=== PATIENT | female | born 1960 | race African-American/Black ===

== ENCOUNTER 2018-03-20 19:31 | Emergency (ER) | payer MEDICARE, MEDICAID ==
[~2018-03-20] VITALS: Ht 162.6 cm; Wt 99.8 kg
[2018-03-20 19:33] VITALS: BP_SYST 150
[2018-03-20] MEDS ORDERED: ASPIRIN 81 MG TAB.CHEW PO ONE (20:30)
[2018-03-20] MEDS ORDERED: FUROSEMIDE 40 MG/4 ML VIAL IVP ONE (20:30)
[2018-03-20 21:09] LABS: BASOPHILS # (AUTO) 0.1 K/uL (0.0-0.2); BASOPHILS % (AUTO) 0.7 % (0.0-2.0); EOSINOPHILS # (AUTO) 0.1 K/uL (0.0-0.4); EOSINOPHILS % (AUTO) 1.4 % (0.0-4.0); HEMOGLOBIN 12.6 g/dL (12.0-16.0); LYMPHOCYTES # (AUTO) 2.9 K/uL (1.0-5.5); LYMPHOCYTES % (AUTO) 38.7 % (20.5-51.5); MEAN CORPUSCULAR HEMOGLOBIN 34 pg (27-31); MEAN CORPUSCULAR HGB CONC 34 % (32-36); MEAN CORPUSCULAR VOLUME 99 fL (79.0-98.0); MONOCYTES # (AUTO) 0.6 K/uL (0.0-1.0); MONOCYTES % (AUTO) 7.6 % (1.7-9.3); NEUTROPHILS # (AUTO) 3.7 K/uL (1.8-7.7); NEUTROPHILS % (AUTO) 51.6 % (40.0-70.0); PLATELET COUNT (AUTO) 320 K/uL (130-430); RED BLOOD CELL COUNT(AUTO) 3.74 MIL/uL (4.2-6.2); RED CELL DISTRIBUTION WIDTH 13.2 % (9.0-15.0); WHITE BLOOD COUNT (AUTO) 7.4 K/uL (4.8-10.8)
[2018-03-20] MEDS ORDERED: NITROGLYCERIN 0.4 MG TAB.SUBL SL ONE (21:15)
[2018-03-20 21:32] LABS: INR 1.1 (0.8-1.2); PROTHROMBIN TIME 11.6 SECS (9.5-12.5)
[2018-03-20 21:54] LABS: CALCIUM 7.9 mg/dL (8.4-11.0); CREATININE 0.72 mg/dL (0.55-1.30); POTASSIUM 3.5 mmol/L (3.5-5.1)
[2018-03-20 21:59] LABS: ALBUMIN 3.2 g/dL (3.4-4.8); TOTAL BILIRUBIN 0.4 mg/dL (0.0-1.0)
[2018-03-21 00:07] VITALS: BP_SYST 131
== END 2018-03-21 00:07 | disposition home or self-care (01) ==
LOC: SED 19:31
DX: R60.9 Edema, unspecified (principal); R07.89 Other chest pain; I10 Essential (primary) hypertension; F41.9 Anxiety disorder, unspecified; F17.200 Nicotine dependence, unspecified, uncomplicated
CPT/HCPCS: 36415; 71045; 80053; 81025; 83880; 84484; 85025; 85379; 85610; 85730; 93005; 93971; 96374; 99285; J1940

== ENCOUNTER 2018-06-27 09:35 | Inpatient (IN) | payer MEDICARE, MEDICAID ==
[~2018-06-27] VITALS: Ht 162.6 cm; Wt 100.2 kg
[2018-06-27 09:35] VITALS: BP_SYST 163
[2018-06-27] MEDS ORDERED: NACL 0.9% 1,000 ML IV ONE ×2 (10:00→12:15)
[2018-06-27] MEDS ORDERED: MORPHINE 4 MG/ML INJ. SYRINGE IVP ONE (10:00)
[2018-06-27 10:24] LABS: BASOPHILS # (AUTO) 0.1 K/uL (0.0-0.2); BASOPHILS % (AUTO) 1.5 % (0.0-2.0); EOSINOPHILS # (AUTO) 0.1 K/uL (0.0-0.4); EOSINOPHILS % (AUTO) 0.9 % (0.0-4.0); HEMATOCRIT 42.8 % (36-48); HEMOGLOBIN 14.2 g/dL (12.0-16.0); LYMPHOCYTES % (AUTO) 23.2 % (20.5-51.5); MEAN CORPUSCULAR HEMOGLOBIN 35 pg (27-31); MEAN CORPUSCULAR HGB CONC 33 % (32-36); MEAN CORPUSCULAR VOLUME 104 fL (79.0-98.0); MONOCYTES # (AUTO) 0.5 K/uL (0.0-1.0); MONOCYTES % (AUTO) 5.7 % (1.7-9.3); NEUTROPHILS # (AUTO) 6.1 K/uL (1.8-7.7); NEUTROPHILS % (AUTO) 68.7 % (40.0-70.0); PLATELET COUNT (AUTO) 225 K/uL (130-430); RED CELL DISTRIBUTION WIDTH 13.8 % (9.0-15.0); WHITE BLOOD COUNT (AUTO) 8.8 K/uL (4.8-10.8)
[2018-06-27 10:35] LABS: ANION GAP 12 (5-15); CALCIUM 9.4 mg/dL (8.4-11.0); CHLORIDE 103 mmol/L (98-107); CREATININE 0.83 mg/dL (0.55-1.30); GLUCOSE 179 mg/dL (70-99); POTASSIUM 3.8 mmol/L (3.5-5.1); SODIUM SERUM 136 mmol/L (136-145); UREA NITROGEN, BLOOD 7 mg/dL (8-21)
[2018-06-27 10:38] LABS: GFR AFRICAN AMERICAN 91 mL/min (>90)
[2018-06-27 10:41] LABS: ALANINE AMINOTRANSFERASE 85 U/L (12-78); ALBUMIN 3.3 g/dL (3.4-4.8); ASPARTATE AMINOTRANSFERASE 40 U/L (10-37); LIPASE 599 U/L (73-393); TOTAL BILIRUBIN 0.5 mg/dL (0.0-1.0)
[2018-06-27 10:42] LABS: ALCOHOL, BLOOD < 3 mg/dL (<10)
[2018-06-27] MEDS ORDERED: BENA20TA2 PO (10:53)
[2018-06-27] MEDS ORDERED: NITSL SL (10:53)
[2018-06-27] MEDS ORDERED: HYDR-3698 PO (10:53)
[2018-06-27] MEDS ORDERED: MELO15TA13 PO (10:53)
[2018-06-27] MEDS ORDERED: QUET300T2 PO (10:53)
[2018-06-27] MEDS: D5NS 1,000 ML IV SCH ×2 (11:15→20:50)
[2018-06-27 11:27] VITALS: BP_SYST 185
[2018-06-27] MEDS: HYDROmorphone 2 MG/ML VIAL IVP PRN ×4 (11:41→23:31)
[2018-06-27] MEDS ORDERED: ONDANSETRON HCL 4 MG/2 ML VIAL IVP PRN (11:45)
[2018-06-27] MEDS ORDERED: HYDROmorphone 1 MG INJ. 1 MG/ML AMPUL IVP PRN (11:45)
[2018-06-27] MEDS ORDERED: chlordiazePOXIDE HCL 25 MG CAPSULE PO ONE (12:00)
[2018-06-27] MEDS ORDERED: BANANA BAG 1 EA, FOLIC ACID 1 MG, THIAMINE HCL 100 MG, MAGNESIUM SULFATE 1 GM, MVI 10 M... IV SCH ×5 (12:00)
[2018-06-27] MEDS ORDERED: LORazepam 2 MG/ML VIAL IVP PRN (12:00)
[2018-06-27] MEDS: cloNIDine HCL 0.1 MG TABLET PO PRN ×2 (13:36→20:41)
[2018-06-27] MEDS: ENALAPRILAT DIHYDRATE 1.25 MG/ML VIAL IVP PRN (14:52)
[2018-06-27 16:00] VITALS: BP_SYST 149
[2018-06-27] MEDS: chlordiazePOXIDE HCL 25 MG CAPSULE PO SCH ×2 (18:00→21:42)
[2018-06-27 19:52] VITALS: BP_SYST 181
[2018-06-27] MEDS: QUEtiapine FUMARATE 100 MG TABLET PO SCH (20:41)
[2018-06-27 23:34] VITALS: BP_SYST 175
[2018-06-28] MEDS: D5NS 1,000 ML IV SCH ×2 (00:35→06:26)
[2018-06-28] MEDS: HYDROmorphone 2 MG/ML VIAL IVP PRN ×2 (03:08→07:49)
[2018-06-28 07:57] LABS: CALCIUM 8.8 mg/dL (8.4-11.0); CREATININE 0.63 mg/dL (0.55-1.30); POTASSIUM 3.5 mmol/L (3.5-5.1); TOTAL BILIRUBIN 0.3 mg/dL (0.0-1.0)
[2018-06-28 08:00] VITALS: BP_SYST 186
[2018-06-28] MEDS: chlordiazePOXIDE HCL 25 MG CAPSULE PO SCH (09:07)
[2018-06-28] MEDS: QUEtiapine FUMARATE 100 MG TABLET PO SCH (09:07)
[2018-06-28] MEDS ORDERED: DIATR MEGLU/DIATRIZ SOD 30 ML SOLUTION PO ONE (09:25)
[2018-06-28] MEDS ORDERED: IOHEXOL 350 mgI/mL, 150 ML INFUS..BTL IV ONE (11:17)
[2018-06-28] MEDS: ENALAPRILAT DIHYDRATE 1.25 MG/ML VIAL IVP PRN (11:49)
[2018-06-28 12:02] VITALS: BP_SYST 177
== END 2018-06-28 12:20 | disposition left against medical advice (07) | DRG 439 ==
LOC: SED 09:35 → SMU 10:55
PROVIDERS: ADMIT Internal Medicine Hospice and Palliative Medicine; ATTEND Internal Medicine Hospice and Palliative Medicine
DX: K85.20 Alcohol induced acute pancreatitis without necrosis or infection (principal); R65.10 Systemic inflammatory response syndrome (SIRS) of non-infectious origin without acute organ dysfunction; F20.9 Schizophrenia, unspecified; K86.1 Other chronic pancreatitis; I10 Essential (primary) hypertension; F10.20 Alcohol dependence, uncomplicated; G89.29 Other chronic pain; K83.8 Other specified diseases of biliary tract; F17.210 Nicotine dependence, cigarettes, uncomplicated; R74.0 Nonspecific elevation of levels of transaminase and lactic acid dehydrogenase [LDH]; Z53.21 Procedure and treatment not carried out due to patient leaving prior to being seen by health care provider; Z90.49 Acquired absence of other specified parts of digestive tract; Z79.899 Other long term (current) drug therapy
CPT/HCPCS: 36415; 76700-TC; 80053; 83605; 83690-TC; 85025; 87040-TC; 96361; 96374; 99285; G0482; J1170; J2270; J3411; J3475; J3490; J7030; Q9964; Q9967

== ENCOUNTER 2018-06-28 19:49 | Emergency (ER) | payer MEDICARE, MEDICAID ==
[~2018-06-28] VITALS: Ht 162.6 cm; Wt 103.9 kg
[~2018-06-28 19:49] MED LIST: BENA20TA2 PO; HYDR-3698 PO; MELO15TA13 PO; NITSL SL; QUET300T2 PO
[2018-06-28 19:57] VITALS: BP_SYST 159
[2018-06-28 20:21] LABS: BILIRUBIN,URINE NEGATIVE (NEGATIVE); CLARITY/URINE CLEAR (CLEAR); COLOR,URINE YELLOW (YELLOW); GLUCOSE,URINE NEGATIVE (NEGATIVE); KETONES,URINE TRACE (NEGATIVE); LEUKOCYTE ESTERASE ,URINE NEGATIVE (NEGATIVE); NITRITE, URINE NEGATIVE (NEGATIVE); PROTEIN URINE TRACE (NEGATIVE); UROBILINOGEN,URINE 0.2 (0.2-1.0)
[2018-06-28 20:23] LABS: BLOOD, URINE TRACE (NEGATIVE)
[2018-06-28 20:30] LABS: BACTERIA,URINE FEW /HPF (None Seen); RBC,URINE NONE SEEN /HPF (0-3); WBC,URINE 0-3 /HPF (0-3)
[2018-06-28] MEDS ORDERED: NACL 0.9% 1,000 ML IV ONE (20:30)
[2018-06-28] MEDS ORDERED: MORPHINE 4 MG/ML INJ. SYRINGE IVP ONE (20:30)
[2018-06-28 20:31] LABS: MUCUS,URINE None Seen /LPF (None Seen)
[2018-06-28 20:43] LABS: BASOPHILS % (AUTO) 0.4 % (0.0-2.0); EOSINOPHILS # (AUTO) 0.1 K/uL (0.0-0.4); EOSINOPHILS % (AUTO) 1.2 % (0.0-4.0); HEMOGLOBIN 13.1 g/dL (12.0-16.0); LYMPHOCYTES % (AUTO) 27.3 % (20.5-51.5); MEAN CORPUSCULAR HEMOGLOBIN 35 pg (27-31); MEAN CORPUSCULAR HGB CONC 33 % (32-36); MEAN CORPUSCULAR VOLUME 106 fL (79.0-98.0); MONOCYTES # (AUTO) 0.5 K/uL (0.0-1.0); NEUTROPHILS # (AUTO) 4.8 K/uL (1.8-7.7); NEUTROPHILS % (AUTO) 64.1 % (40.0-70.0); PLATELET COUNT (AUTO) 219 K/uL (130-430); RED BLOOD CELL COUNT(AUTO) 3.77 MIL/uL (4.2-6.2); RED CELL DISTRIBUTION WIDTH 13.9 % (9.0-15.0); WHITE BLOOD COUNT (AUTO) 7.4 K/uL (4.8-10.8)
[2018-06-28 20:50] LABS: CALCIUM 8.9 mg/dL (8.4-11.0); CREATININE 0.82 mg/dL (0.55-1.30); POTASSIUM 3.7 mmol/L (3.5-5.1)
[2018-06-28 20:53] LABS: ALBUMIN 3.1 g/dL (3.4-4.8); TOTAL BILIRUBIN 0.4 mg/dL (0.0-1.0)
[2018-06-28] MEDS ORDERED: KETOROLAC TROMETHAMINE 30 MG VIAL IVP ONE (21:30)
[2018-06-28 21:50] VITALS: BP_SYST 158
== END 2018-06-28 21:50 | disposition home or self-care (01) ==
LOC: SED 19:49
DX: R10.13 Epigastric pain (principal); F10.10 Alcohol abuse, uncomplicated; F41.9 Anxiety disorder, unspecified; I10 Essential (primary) hypertension; F17.210 Nicotine dependence, cigarettes, uncomplicated; Z71.6 Tobacco abuse counseling; Z79.899 Other long term (current) drug therapy
CPT/HCPCS: 36415; 80053; 81000; 83690; 85025; 96361; 96374; 96375; 99283; J1885; J2270; J7030

== ENCOUNTER 2018-08-13 14:55 | Emergency (ER) | payer MEDICARE, MEDICAID ==
[~2018-08-13] VITALS: Ht 162.6 cm; Wt 97.5 kg
[2018-08-13 15:00] VITALS: BP_SYST 163
[2018-08-13 15:42] LABS: BASOPHILS # (AUTO) 0.1 K/uL (0.0-0.2); BILIRUBIN,URINE NEGATIVE (NEGATIVE); BLOOD, URINE NEGATIVE (NEGATIVE); CLARITY/URINE SL CLOUDY (CLEAR); COLOR,URINE YELLOW (YELLOW); EOSINOPHILS # (AUTO) 0.1 K/uL (0.0-0.4); EOSINOPHILS % (AUTO) 0.7 % (0.0-4.0); GLUCOSE,URINE NEGATIVE (NEGATIVE); HEMOGLOBIN 13.9 g/dL (12.0-16.0); KETONES,URINE TRACE (NEGATIVE); LEUKOCYTE ESTERASE ,URINE 1+ (NEGATIVE); MEAN CORPUSCULAR HEMOGLOBIN 35 pg (27-31); MEAN CORPUSCULAR HGB CONC 34 % (32-36); NITRITE, URINE POSITIVE (NEGATIVE); PROTEIN URINE 2+ (NEGATIVE); UROBILINOGEN,URINE 0.2 (0.2-1.0)
[2018-08-13] MEDS ORDERED: DIPHENHYDRAMINE INJ 50 MG/ML VIAL IVP ONE (15:45)
[2018-08-13] MEDS ORDERED: MORPHINE 4 MG/ML INJ. SYRINGE IVP ONE ×2 (15:45→16:15)
[2018-08-13 15:46] LABS: BASOPHILS % (AUTO) 1.1 % (0.0-2.0); HEMATOCRIT 40.7 % (36-48); LYMPHOCYTES # (AUTO) 2.2 K/uL (1.0-5.5); LYMPHOCYTES % (AUTO) 20.8 % (20.5-51.5); MEAN CORPUSCULAR VOLUME 102 fL (79.0-98.0); MONOCYTES # (AUTO) 0.7 K/uL (0.0-1.0); MONOCYTES % (AUTO) 6.3 % (1.7-9.3); NEUTROPHILS # (AUTO) 7.6 K/uL (1.8-7.7); NEUTROPHILS % (AUTO) 71.1 % (40.0-70.0); PLATELET COUNT (AUTO) 228 K/uL (130-430); RED BLOOD CELL COUNT(AUTO) 3.99 MIL/uL (4.2-6.2); RED CELL DISTRIBUTION WIDTH 13.8 % (9.0-15.0); WHITE BLOOD COUNT (AUTO) 10.7 K/uL (4.8-10.8)
[2018-08-13 15:47] LABS: BACTERIA,URINE MODERATE /HPF (None Seen); FINE GRANULAR CASTS,URINE 0-10 /LPF (None Seen); RBC,URINE 0-3 /HPF (0-3)
[2018-08-13 15:56] LABS: CALCIUM 8.6 mg/dL (8.4-11.0); CREATININE 1.08 mg/dL (0.55-1.30)
[2018-08-13 15:57] LABS: INR 1.1 (0.8-1.2); PROTHROMBIN TIME 10.9 SECS (9.5-12.5)
[2018-08-13 15:58] LABS: ALBUMIN 3.3 g/dL (3.4-4.8); TOTAL BILIRUBIN 0.4 mg/dL (0.0-1.0)
[2018-08-13] MEDS ORDERED: cefTRIAXone 1 GM IVPB PREMIX 50 ML IV ONE (16:15)
[2018-08-13] MEDS ORDERED: POTASSIUM CHLORIDE 20 MEQ/PKT PACKET PO ONE (16:15)
[2018-08-13 17:15] VITALS: BP_SYST 145
== END 2018-08-13 17:15 | disposition home or self-care (01) ==
LOC: SED 14:55
DX: K85.90 Acute pancreatitis without necrosis or infection, unspecified (principal); N39.0 Urinary tract infection, site not specified; E87.6 Hypokalemia; F41.9 Anxiety disorder, unspecified; I10 Essential (primary) hypertension; F17.210 Nicotine dependence, cigarettes, uncomplicated; Z79.899 Other long term (current) drug therapy
CPT/HCPCS: 36415; 71045; 74176; 80053; 81000; 83605; 83690; 85025; 85610; 87040; 87086; 87186; 93005; 96365; 96375; 99284; J0696; J1200; J2270; 99283

== ENCOUNTER 2018-08-14 00:14 | Inpatient (IN) | payer MEDICARE, MEDICAID ==
[~2018-08-14] VITALS: Ht 162.6 cm; Wt 97.1 kg
[2018-08-14] MEDS ORDERED: NACL 0.9% 1,000 ML IV ONE ×2 (00:20→02:45)
[2018-08-14] MEDS ORDERED: MORPHINE 4 MG/ML INJ. SYRINGE IVP ONE (00:30)
[2018-08-14] MEDS ORDERED: DIPHENHYDRAMINE INJ 50 MG/ML VIAL IVP ONE (00:30)
[2018-08-14] MEDS ORDERED: ONDANSETRON HCL 4 MG/2 ML VIAL IVP ONE (00:30)
[2018-08-14 00:35] VITALS: BP_SYST 163
--- NOTE | 2018-08-14 00:41 | NUR ---
Patient to ER bed 5 to gown for evaluation. Side rails up. Report given to JOSE Reynoso.
--- NOTE | 2018-08-14 00:50 | NUR ---
Note undone in EDM - 08/14/18 at 0212 by DAVEY PT BECAME BACK TO ED (SEEN EARLIER TONIGHT) C/O non-radiating epigastric abdominal pain that started last night. The patient was last seen in the ED earlier this evening for similar complaints. The patient was discharged home with UTI, acute pancreatitis, and hypokalemia, and was prescribed Kellogg and Bactrim. HOWEVER, SYMPTOMS WORSENED. NO OTHER INJURIES AND/OR COMPLIANTS. NOR NOTED
--- NOTE | 2018-08-14 00:50 | NUR ---
PT BECAME BACK TO ED C/O CONTINUE EPIGASTRIC ABD PAIN STARTED LAST NIGHT. PT WAS SEEN IN ED EALIER THIS EVENING FOR SIMILAR COMPLAINTS. PT WAS DC'D HOME FOR ACUTE PANCREATITIS, AND UTI. HOWEVER, SYMPTOMS WORSENED, THEREFORE THE RETURN VISIT NO OTHER INJURIES AND/OR COMPLIANTS. NOR NOTED
--- NOTE | 2018-08-14 00:52 | NUR ---
ER Dr. Huang at bedside examining patient.
[2018-08-14] MEDS ORDERED: MORPHINE 4 MG/ML INJ. SYRINGE ONE (01:19)
--- NOTE | 2018-08-14 01:20 | NUR ---
# 22 gauge angiocath placed to LFA. Use of asceptic technique. Opsite placed over site. Blood return noted. Blood for lab drawn from site. Flushed with 10 cc of normal saline. No evidence of infiltration noted. Patient tolerated well.
[2018-08-14 01:22] LABS: BILIRUBIN,URINE NEGATIVE (NEGATIVE); CLARITY/URINE CLEAR (CLEAR); COLOR,URINE YELLOW (YELLOW); GLUCOSE,URINE NEGATIVE (NEGATIVE); KETONES,URINE NEGATIVE (NEGATIVE); LEUKOCYTE ESTERASE ,URINE TRACE (NEGATIVE); NITRITE, URINE NEGATIVE (NEGATIVE); PROTEIN URINE 1+ (NEGATIVE); UROBILINOGEN,URINE 0.2 (0.2-1.0)
[2018-08-14 01:24] LABS: BLOOD, URINE TRACE (NEGATIVE)
--- NOTE | 2018-08-14 01:31 | NUR ---
End of life care decisions discussed with patient by Dr. Huang. Opportunity for questions and concerns addressed. Patient's code status is FULL CODE, paperwork completed and placed in chart.
--- NOTE | 2018-08-14 01:33 | NUR ---
Medication reconciliation completed with information provided by patient. Any prior medication reconciliation on file was reviewed and corrected.
[2018-08-14 01:34] LABS: BACTERIA,URINE FEW /HPF (None Seen); HYALINE CASTS, URINE 0-10 /LPF (None Seen)
[2018-08-14 01:35] LABS: MUCUS,URINE 1+ /LPF (None Seen)
[2018-08-14] MEDS ORDERED: cefTRIAXone 1 GM IVPB PREMIX 50 ML IV ONE (01:45)
[2018-08-14 01:48] LABS: BASOPHILS % (AUTO) 0.4 % (0.0-2.0); EOSINOPHILS % (AUTO) 0.4 % (0.0-4.0); HEMATOCRIT 39.7 % (36-48); HEMOGLOBIN 13.7 g/dL (12.0-16.0); LYMPHOCYTES # (AUTO) 1.9 K/uL (1.0-5.5); LYMPHOCYTES % (AUTO) 16.3 % (20.5-51.5); MEAN CORPUSCULAR HEMOGLOBIN 35 pg (27-31); MEAN CORPUSCULAR HGB CONC 34 % (32-36); MEAN CORPUSCULAR VOLUME 100 fL (79.0-98.0); MONOCYTES # (AUTO) 0.6 K/uL (0.0-1.0); MONOCYTES % (AUTO) 5.2 % (1.7-9.3); NEUTROPHILS # (AUTO) 9.2 K/uL (1.8-7.7); NEUTROPHILS % (AUTO) 77.7 % (40.0-70.0); PLATELET COUNT (AUTO) 193 K/uL (130-430); RED BLOOD CELL COUNT(AUTO) 3.96 MIL/uL (4.2-6.2); RED CELL DISTRIBUTION WIDTH 13.9 % (9.0-15.0); WHITE BLOOD COUNT (AUTO) 11.7 K/uL (4.8-10.8)
[2018-08-14] MEDS ORDERED: fentaNYL CITRATE/PF 100 MCG/2 ML AMP IVP ONE (02:00)
[2018-08-14 02:04] LABS: CALCIUM 8.7 mg/dL (8.4-11.0); CREATININE 0.7 mg/dL (0.55-1.30)
[2018-08-14 02:06] LABS: INR 1.1 (0.8-1.2); PROTHROMBIN TIME 11.6 SECS (9.5-12.5)
[2018-08-14 02:13] LABS: ALBUMIN 3.4 g/dL (3.4-4.8); TOTAL BILIRUBIN 0.5 mg/dL (0.0-1.0)
[2018-08-14 02:15] LABS: POTASSIUM 3.5 mmol/L (3.5-5.1)
[2018-08-14] MEDS ORDERED: ONDANSETRON HCL 4 MG/2 ML VIAL IVP PRN (02:45)
[2018-08-14] MEDS ORDERED: MORPHINE 4 MG/ML INJ. SYRINGE IVP PRN (02:45)
[2018-08-14] MEDS ORDERED: cloNIDine HCL 0.1 MG TABLET PO ONE (02:45)
--- NOTE | 2018-08-14 02:48 | NUR ---
Medication was given, pt tolerate well. BP 176/83. Dr. Huang aware.
--- NOTE | 2018-08-14 02:58 | NUR ---
Re-checked BP 169/57. Dr. Huang aware.
--- NOTE | 2018-08-14 03:05 | NUR ---
BP currently at 174/87. Dr. Huang aware.
[2018-08-14] MEDS ORDERED: cloNIDine HCL 0.2 MG TABLET PO ONE (03:30)
--- NOTE | 2018-08-14 03:35 | NUR ---
Medication was given, pt tolerated well.
--- NOTE | 2018-08-14 03:36 | NUR ---
Current BP 159/81. Dr. Huang aware.
[2018-08-14] MEDS ORDERED: cloNIDine HCL 0.1 MG TABLET ONE (03:41)
--- NOTE | 2018-08-14 03:42 | NUR ---
Patient will be admitted to care of Dr. Reyna. Admitted to Med Surg unit. Will go to room 122 B. Belongings list completed. Summary report printed. Report given.
--- NOTE | 2018-08-14 03:42 | NUR ---
Transfer to Med Surg. IV present no signs or symptoms of infiltration.
--- NOTE | 2018-08-14 03:49 | NUR ---
ADMISSION NOTE Received patient from ER via gurney. Patient admitted with diagnosis of Acute Pancreatitis. Patient is awake, alert, oriented X 4. Patient oriented to hospital room, call light, toileting, pain management and safety-teach back done. Patient informed that JOSE Mosley will be primary nurse and that their room number is 122B. Personal belongings checked and Belongings List documented. Call light within reach.
[2018-08-14 04:00] VITALS: BP_SYST 194
--- NOTE | 2018-08-14 04:00 | NUR ---
OPENING NOTE RECEIVED ENDORSEMENT REPORT FROM NURSE LONGO AT BEDSIDE. PT IS RESTING COMFORTABLY IN BED. PT IS AOX4. CHEST RISE EVEN AND UNLABORED. NO SOB NOTED. NO DISTRESS NOTED. SKIN DRY CLEAN AND INTACT. ORIENTED PT TO HOSPITAL ROOM, PT VERBALIZED UNDERSTANDING. INSTRUCTED PT TO USE CALL LIGHT/ ROOM PHONE TO CALL FOR ASSISTANCE. PT VERBALIZED UNDERSTANDING SAFETY MEASURES IN PLACE, CALL LIGHT/ROOM PHONE WITHIN REACH, BED ALARM ON, BED WHEELS LOCKED, SIDE RAILS UP X2, BEDSIDE TABLE WITHIN REACH. NO OTHER NEEDS AT THIS TIME. WILL CONTINUE TO MONITOR PT AND CONTINUE POC.
--- NOTE | 2018-08-14 04:06 | NUR ---
PT ARRIVED VIA BETTYE @4630
--- NOTE | 2018-08-14 04:16 | NUR ---
MED PASS PRN MORPHINE 4 MG IVP ADMINISTERED FOR ABD PAIN 8/10 PAIN, PT TOLERATED WELL. WILL CONTINUE TO MONITOR PT. NO OTHER NEEDS AT THIS TIME. SAFETY MEASURES IN PLACE. WILL CONTINUE WITH POC.
--- NOTE | 2018-08-14 05:10 | NUR ---
SAFETY PT IS NONCOMPLIANT, PT CONTINUOUSLY ATTEMPTING TO GET OUT OF BED. EDUCATED PT ON PT SAFETY, PT VERBALIZED UNDERSTANDING BUT CONTINUES TO GET OUT OF BED. PT ASSISTED BACK INTO BED. SAFETY MEASURES IN PLACE INCLUDING BED ALARM. WILL CONTINUE TO MONITOR PT.
--- NOTE | 2018-08-14 06:15 | NUR ---
PT LEFT AMA EDUCATED PT ON LEAVING AGAINST MEDICAL ADVICE, PT VERBALIZED UNDERSTANDING. PT VOLUNTARILY SIGNED AND LEFT THE HOSPITAL WITHOUT BEING SEEN BY THE PHYSICIAN. PT AMBULATED WITH STEADY GAIT OUT TO THROUGH THE ED DOUBLE DOORS.
--- NOTE | 2018-08-14 06:50 | NUR ---
PT RETURNED. PT'S CARE CONTINUED
--- NOTE | 2018-08-14 06:50 | NUR ---
PER [employer] PT'S CARE TO BE CONTINUED, PT SIGNED AND LEFT AMA AND WAS GONE FROM 0615 TO 0650 WHEN SHE RETURNED BACK FROM ED. ACCORDING TO [employer] CALEB PT TO BE RETURNED INTO SYSTEM AFTER DISCHARGE AND AMA.
--- NOTE | 2018-08-14 07:57 | NUR ---
CLOSING NOTE PT REPORT ENDORSED TO DAY SHIFT NURSE ROXANNE. PT IS RESTING COMFORTABLY IN BED. PT IS AOX4. CHEST RISE EVEN AND UNLABORED. NO SOB NOTED. NO DISTRESS NOTED. SAFETY MEASURES IN PLACE. CARE ENDORSED.
--- NOTE | 2018-08-14 08:13 | NUR ---
AMA: Patient does not wish to proceed with medical care recommended by DR. BIGGS. Patient given information related to possible complications, up to and including , which could occur as a result of leaving hospital at this time. Patient verbalizes understanding of risks involved leaving against medical advice. Patient refused to sign AMA form.
--- NOTE | 2018-08-14 08:13 | NUR ---
NOTES RECEIVED PATIENT SITTING IN BED, EDUCATED PATIENT TO STAY IN BED AND WAIT FOR THE DOCTOR TO COME SEE PATIENT, PATIENT VERBALIZED UNDERSTANDING, PATIENT RETURNED TO BED WITH GOWN AND BED ALARM ON, RETURNED TO TAKE PATIENTS VITAL SIGNS AND RECEIVED CALL THAT PATIENT WAS IN ER DRESSED AND WALKING OUT THE DOOR, PATIENT REFUSED TO SIGN AMA AND JUST WANTED TO LEAVE.
--- NOTE | 2018-08-14 08:35 | NUR ---
SPOKE TO DAUGHTER PORFIRIO ESTEVES ON THE PHONE AND MADE HER AWARE THAT HER MOTHER HAS LEFT AMA.
--- NOTE | 2018-08-16 12:31 | NUR ---
RECEIVED +URINE CULTURE FROM LABORATORY, DISCUSSED CASE WITH DR LOUIS AND PT RECEIVED ANTIBIOTICS THAT THEY ARE SENSITIVE TO, NO FURTHER ACTIONS NEEDED.
== END 2018-08-14 08:10 | disposition left against medical advice (07) | DRG 440 ==
LOC: SED 00:14 → SMU 02:32 → UNDODISIN 06:15
PROVIDERS: ADMIT Internal Medicine Hospice and Palliative Medicine; ATTEND Internal Medicine Hospice and Palliative Medicine
DX: K85.90 Acute pancreatitis without necrosis or infection, unspecified (principal); Z53.21 Procedure and treatment not carried out due to patient leaving prior to being seen by health care provider; I10 Essential (primary) hypertension; F41.9 Anxiety disorder, unspecified; F17.210 Nicotine dependence, cigarettes, uncomplicated; Z79.899 Other long term (current) drug therapy
CPT/HCPCS: 36415; 80053; 81000-TC; 82150-TC; 82550-TC; 83605; 83690-TC; 84484; 85025; 85610-TC; 85730-TC; 87040-TC; 87086; 93005; 96365; 96375; 99285; G0482; J0696; J1200; J2270; J2405; J3010; J7030

== ENCOUNTER 2018-12-07 14:26 | Emergency (ER) | payer OTHER, MEDICAID ==
[~2018-12-07] VITALS: Ht 162.6 cm; Wt 104.3 kg
[~2018-12-07 14:26] MED LIST changes: -BENA20TA2 PO; +BENA20TA9 PO; -NITSL SL
--- NOTE | 2018-12-07 14:26 | NUR ---
BROUGHT BACK TO BED #6 AND TRIAGED. REPORT GIVEN TO ARMANDO
[2018-12-07 14:27] VITALS: BP_SYST 165
--- NOTE | 2018-12-07 14:45 | NUR ---
Pt presents to ED c/o lower abd pain radiating to bilateral flank.Pt reports h/o HTN. Pt denies n/v/d at this time.
[2018-12-07] MEDS ORDERED: MORPHINE SULFATE 10 MG/ML VIAL IM ONE (15:00)
--- NOTE | 2018-12-07 15:00 | NUR ---
ER at bedside examining patient.
--- NOTE | 2018-12-07 15:16 | NUR ---
Pt tolerated medication well.Continuing to monitor.
--- NOTE | 2018-12-07 15:20 | NUR ---
Urine specimen collected and sent to lab
[2018-12-07 15:21] LABS: BASOPHILS % (AUTO) 0.3 % (0.0-2.0); EOSINOPHILS % (AUTO) 0.3 % (0.0-4.0); HEMATOCRIT 42.4 % (36-48); HEMOGLOBIN 14.8 g/dL (12.0-16.0); LYMPHOCYTES # (AUTO) 1.8 K/uL (1.0-5.5); MEAN CORPUSCULAR HEMOGLOBIN 36 pg (27-31); MEAN CORPUSCULAR HGB CONC 35 % (32-36); MEAN CORPUSCULAR VOLUME 103 fL (79.0-98.0); MONOCYTES # (AUTO) 0.7 K/uL (0.0-1.0); MONOCYTES % (AUTO) 6.5 % (1.7-9.3); NEUTROPHILS # (AUTO) 8.1 K/uL (1.8-7.7); NEUTROPHILS % (AUTO) 75.9 % (40.0-70.0); PLATELET COUNT (AUTO) 173 K/uL (130-430); RED BLOOD CELL COUNT(AUTO) 4.13 MIL/uL (4.2-6.2); WHITE BLOOD COUNT (AUTO) 10.7 K/uL (4.8-10.8)
[2018-12-07 15:35] LABS: CALCIUM 8.3 mg/dL (8.4-11.0); CREATININE 1.02 mg/dL (0.55-1.30)
[2018-12-07 15:37] LABS: BILIRUBIN,URINE NEGATIVE (NEGATIVE); CLARITY/URINE HAZY (CLEAR); COLOR,URINE YELLOW (YELLOW); GLUCOSE,URINE NEGATIVE (NEGATIVE); KETONES,URINE TRACE (NEGATIVE); LEUKOCYTE ESTERASE ,URINE 1+ (NEGATIVE); NITRITE, URINE NEGATIVE (NEGATIVE); PROTEIN URINE 1+ (NEGATIVE); UROBILINOGEN,URINE 0.2 (0.2-1.0)
[2018-12-07 15:41] LABS: ALBUMIN 3.6 g/dL (3.4-4.8); TOTAL BILIRUBIN 1.1 mg/dL (0.0-1.0)
[2018-12-07 15:45] LABS: BLOOD, URINE TRACE (NEGATIVE)
[2018-12-07 15:52] LABS: BACTERIA,URINE MANY /HPF (None Seen); MUCUS,URINE None Seen /LPF (None Seen); RBC,URINE 0-3 /HPF (0-3)
[2018-12-07] MEDS ORDERED: MORPHINE 2 MG/ML INJ. SYRINGE IVP ONE (16:00)
--- NOTE | 2018-12-07 16:31 | NUR ---
Pt tolerated medication well.
--- NOTE | 2018-12-07 17:10 | NUR ---
Patient transported to radiology via WC, accompanied by rad staff.
--- NOTE | 2018-12-07 17:30 | NUR ---
Returned from radiology, back to [facility].
--- NOTE | 2018-12-07 17:53 | NUR ---
Pt sleeping VSS. Continuing to monitor. 170/86, 97%,86 HR
[2018-12-07 18:20] VITALS: BP_SYST 160
== END 2018-12-07 17:53 | disposition home or self-care (01) ==
LOC: SED 14:26
DX: N13.30 Unspecified hydronephrosis (principal); N39.0 Urinary tract infection, site not specified; F41.9 Anxiety disorder, unspecified; I10 Essential (primary) hypertension; F17.200 Nicotine dependence, unspecified, uncomplicated; Z79.899 Other long term (current) drug therapy
CPT/HCPCS: 36415; 76700; 80053; 81000; 83690; 85025; 87086; 87186; 93005; 96372; 96374; 99284; J2270 ×2

== ENCOUNTER 2018-12-11 01:05 | Inpatient (IN) | payer OTHER, MEDICAID ==
[2018-12-11] VITALS (7 sets, daily range): BP systolic 118–161
[~2018-12-11] VITALS: Ht 162.6 cm; Wt 104.3 kg
[2018-12-11] MEDS ORDERED: NACL 0.9% 1,000 ML IV ONE (02:04)
[2018-12-11 02:25] LABS: BASOPHILS % (AUTO) 0.4 % (0.0-2.0); EOSINOPHILS % (AUTO) 0.4 % (0.0-4.0); HEMATOCRIT 40.7 % (36-48); HEMOGLOBIN 14.3 g/dL (12.0-16.0); LYMPHOCYTES # (AUTO) 2.2 K/uL (1.0-5.5); LYMPHOCYTES % (AUTO) 21.2 % (20.5-51.5); MEAN CORPUSCULAR HEMOGLOBIN 36 pg (27-31); MEAN CORPUSCULAR HGB CONC 35 % (32-36); MEAN CORPUSCULAR VOLUME 103 fL (79.0-98.0); MONOCYTES % (AUTO) 9.7 % (1.7-9.3); NEUTROPHILS % (AUTO) 68.3 % (40.0-70.0); PLATELET COUNT (AUTO) 222 K/uL (130-430); RED BLOOD CELL COUNT(AUTO) 3.94 MIL/uL (4.2-6.2); RED CELL DISTRIBUTION WIDTH 14.2 % (9.0-15.0); WHITE BLOOD COUNT (AUTO) 10.3 K/uL (4.8-10.8)
[2018-12-11 02:40] LABS: CALCIUM 8.6 mg/dL (8.4-11.0); CREATININE 1.04 mg/dL (0.55-1.30)
[2018-12-11 02:41] LABS: INR 1.1 (0.8-1.2); PROTHROMBIN TIME 11.5 SECS (9.5-12.5)
[2018-12-11 02:46] LABS: ALBUMIN 3.5 g/dL (3.4-4.8); TOTAL BILIRUBIN 0.7 mg/dL (0.0-1.0)
[2018-12-11 02:53] LABS: POTASSIUM 2.9 mmol/L (3.5-5.1)
[2018-12-11 03:00] LABS: BILIRUBIN,URINE 1+ (NEGATIVE); CLARITY/URINE CLEAR (CLEAR); COLOR,URINE YELLOW (YELLOW); GLUCOSE,URINE NEGATIVE (NEGATIVE); KETONES,URINE TRACE (NEGATIVE); LEUKOCYTE ESTERASE ,URINE NEGATIVE (NEGATIVE); NITRITE, URINE NEGATIVE (NEGATIVE); PROTEIN URINE TRACE (NEGATIVE)
[2018-12-11 03:03] LABS: BLOOD, URINE TRACE (NEGATIVE)
[2018-12-11 03:06] LABS: BACTERIA,URINE FEW /HPF (None Seen); WBC,URINE 0-3 /HPF (0-3)
[2018-12-11] MEDS ORDERED: POTASSIUM CHLORIDE 20 MEQ TAB.PRT.SR PO ONE (03:45)
[2018-12-11] MEDS ORDERED: MORPHINE 4 MG/ML INJ. SYRINGE IVP ONE (03:45)
[2018-12-11] MEDS ORDERED: HYDR50TA61 PO (06:18)
[2018-12-11] MEDS ORDERED: KCL 20 mEq in 100 mL (PREMIX) 100 ML IV ONE (06:45)
[2018-12-11] MEDS: KCL 20 mEq in NS 1000 mL 1,000 ML IV SCH ×2 (08:02→18:22)
[2018-12-11] MEDS: QUEtiapine FUMARATE 100 MG TABLET PO SCH ×2 (08:03→20:07)
[2018-12-11] MEDS: BENAZEPRIL HCL 20 MG TABLET (LOTENSIN) PO SCH (08:04)
[2018-12-11] MEDS ORDERED: chlordiazePOXIDE HCL 25 MG CAPSULE PO ONE (09:15)
[2018-12-11] MEDS ORDERED: ONDANSETRON HCL 4 MG/2 ML VIAL IVP ONE (09:15)
[2018-12-11] MEDS ORDERED: MORPHINE 2 MG/ML INJ. SYRINGE IVP ONE (09:15)
[2018-12-11 11:01] LABS: OPIATE, URINE POSITIVE (NEG <=100)
[2018-12-11 11:02] LABS: BARBITURATE, URINE NEGATIVE (NEG <=200); BENZODIAZEPINE, URINE NEGATIVE (NEG <=150); CANNABINOID, URINE NEGATIVE (NEG <=50); COCAINE, URINE NEGATIVE (NEG <=150); METHAMPHETAMINES SCREEN,URINE NEGATIVE (NEG <=500); PHENCYCLIDINE SCREEN,URINE NEGATIVE (NEG <=25); UR TRICYCLIC ANTIDEPRESSANTS NEGATIVE (NEG <=300); URINE AMPHETAMINE NEGATIVE (NEG <=500); URINE METHADONE NEGATIVE (NEG <=200); URINE OXYCODONE SCREEN NEGATIVE (NEG <=100); URINE PROPOXYPHENE SCREEN NEGATIVE (NEG <=300)
[2018-12-11 11:40] LABS: ALCOHOL, BLOOD < 3 mg/dL (<10)
[2018-12-11] MEDS ORDERED: ONDANSETRON HCL 4 MG/2 ML VIAL IVP PRN (11:45)
[2018-12-11] MEDS: MORPHINE 2 MG/ML INJ. SYRINGE IVP PRN ×2 (12:06→20:08)
[2018-12-11] MEDS ORDERED: PANTOPRAZOLE SODIUM 40 MG/VIAL (PROTONIX) IVP ONE (12:15)
[2018-12-11] MEDS ORDERED: MULTIVITAMINS TAB 1 TABLET PO ONE (17:00)
[2018-12-11] MEDS ORDERED: FOLIC ACID 1 MG TABLET PO ONE (17:00)
[2018-12-11] MEDS ORDERED: THIAMINE HCL 100 MG TABLET GT ONE (17:15)
[2018-12-11] MEDS: PANTOPRAZOLE SODIUM 40 MG/VIAL (PROTONIX) IVP SCH (20:07)
[2018-12-12 01:08] VITALS: BP_SYST 115
[2018-12-12] MEDS: MORPHINE 2 MG/ML INJ. SYRINGE IVP PRN ×5 (02:28→22:34)
[2018-12-12] MEDS: KCL 20 mEq in NS 1000 mL 1,000 ML IV SCH ×2 (02:29→15:06)
[2018-12-12 06:37] LABS: BASOPHILS % (AUTO) 0.4 % (0.0-2.0); EOSINOPHILS # (AUTO) 0.1 K/uL (0.0-0.4); EOSINOPHILS % (AUTO) 0.8 % (0.0-4.0); HEMATOCRIT 41.5 % (36-48); HEMOGLOBIN 13.9 g/dL (12.0-16.0); LYMPHOCYTES # (AUTO) 2.7 K/uL (1.0-5.5); LYMPHOCYTES % (AUTO) 33.6 % (20.5-51.5); MEAN CORPUSCULAR HEMOGLOBIN 35 pg (27-31); MEAN CORPUSCULAR HGB CONC 34 % (32-36); MEAN CORPUSCULAR VOLUME 105 fL (79.0-98.0); MONOCYTES # (AUTO) 0.7 K/uL (0.0-1.0); MONOCYTES % (AUTO) 8.1 % (1.7-9.3); NEUTROPHILS # (AUTO) 4.7 K/uL (1.8-7.7); NEUTROPHILS % (AUTO) 57.1 % (40.0-70.0); PLATELET COUNT (AUTO) 228 K/uL (130-430); RED BLOOD CELL COUNT(AUTO) 3.93 MIL/uL (4.2-6.2); RED CELL DISTRIBUTION WIDTH 14.8 % (9.0-15.0); WHITE BLOOD COUNT (AUTO) 8.2 K/uL (4.8-10.8)
[2018-12-12 07:12] LABS: ALBUMIN 3.4 g/dL (3.4-4.8); BILIRUBIN,DIRECT 0.2 mg/dL (0.0-0.3); CALCIUM 9.1 mg/dL (8.4-11.0); CREATININE 0.84 mg/dL (0.55-1.30); POTASSIUM 3.2 mmol/L (3.5-5.1); THYROID STIMULATING HORMONE 6.26 uIu/mL (0.34-4.82); TOTAL BILIRUBIN 0.6 mg/dL (0.0-1.0)
[2018-12-12] MEDS: MEPERIDINE HCL/PF 100 MG/ML AMP ONE ×2 (07:30→07:32)
[2018-12-12] MEDS ORDERED: SIMETHICONE 40 MG/0.6 ML ML ONE (07:31)
[2018-12-12] MEDS: MIDAZOLAM HCL 5 MG/5 ML VIAL ONE ×4 (07:31→07:36)
[2018-12-12] MEDS ORDERED: MIDAZOLAM HCL 5 MG/5 ML VIAL ONE (07:31)
[2018-12-12] MEDS ORDERED: DIPHENHYDRAMINE INJ 50 MG/ML VIAL ONE (07:32)
[2018-12-12 08:00] VITALS: BP_SYST 132
[2018-12-12] MEDS ORDERED: THIAMINE HCL 100 MG TABLET GT SCH (09:00)
[2018-12-12] MEDS ORDERED: FOLIC ACID 1 MG TABLET PO SCH (09:00)
[2018-12-12] MEDS ORDERED: MULTIVITAMINS TAB 1 TABLET PO SCH (09:00)
[2018-12-12] MEDS: BENAZEPRIL HCL 20 MG TABLET (LOTENSIN) PO SCH (09:21)
[2018-12-12] MEDS: PANTOPRAZOLE SODIUM 40 MG/VIAL (PROTONIX) IVP SCH ×2 (09:21→20:06)
[2018-12-12] MEDS: QUEtiapine FUMARATE 100 MG TABLET PO SCH ×2 (09:22→20:05)
[2018-12-12] MEDS ORDERED: POTASSIUM CHLORIDE 10 MEQ TAB.PRT.SR PO ONE (10:15)
[2018-12-12 11:13] VITALS: BP_SYST 106
[2018-12-12 12:32] VITALS: BP_SYST 119
[2018-12-12 15:32] VITALS: BP_SYST 104
[2018-12-12 18:58] LABS: BILIRUBIN,URINE NEGATIVE (NEGATIVE); BLOOD, URINE NEGATIVE (NEGATIVE); CLARITY/URINE CLEAR (CLEAR); COLOR,URINE YELLOW (YELLOW); GLUCOSE,URINE NEGATIVE (NEGATIVE); KETONES,URINE NEGATIVE (NEGATIVE); LEUKOCYTE ESTERASE ,URINE NEGATIVE (NEGATIVE); NITRITE, URINE NEGATIVE (NEGATIVE); PH,URINE 5.5 (5.0-8.0); PROTEIN URINE TRACE (NEGATIVE); UROBILINOGEN,URINE 0.2 (0.2-1.0)
[2018-12-12 19:08] VITALS: BP_SYST 138
[2018-12-13 00:35] VITALS: BP_SYST 128
[2018-12-13] MEDS: KCL 20 mEq in NS 1000 mL 1,000 ML IV SCH (03:57)
== END 2018-12-13 04:52 | disposition left against medical advice (07) | DRG 391 ==
LOC: SED 01:05 → SMU 06:43
PROVIDERS: ADMIT Internal Medicine; ATTEND Internal Medicine
PROC: 0DB78ZX Excision of Stomach, Pylorus, Via Natural or Artificial Opening Endoscopic, Diagnostic (ICD-10-PCS; principal; 2018-12-12 07:30)
DX: K29.70 Gastritis, unspecified, without bleeding (principal); K85.90 Acute pancreatitis without necrosis or infection, unspecified; E87.1 Hypo-osmolality and hyponatremia; E66.9 Obesity, unspecified; E87.6 Hypokalemia; F10.20 Alcohol dependence, uncomplicated; F20.9 Schizophrenia, unspecified; F17.210 Nicotine dependence, cigarettes, uncomplicated; F32.9 Major depressive disorder, single episode, unspecified; I10 Essential (primary) hypertension; K76.0 Fatty (change of) liver, not elsewhere classified; Z79.899 Other long term (current) drug therapy; F41.9 Anxiety disorder, unspecified; Z68.39 Body mass index [BMI] 39.0-39.9, adult; K26.9 Duodenal ulcer, unspecified as acute or chronic, without hemorrhage or perforation; K29.80 Duodenitis without bleeding
CPT/HCPCS: 36415; 43239; 80048; 80053; 80076; 80307; 81000-TC; 81003; 82150-TC; 82272; 83605; 83690-TC; 83735-TC; 84443-TC; 85025; 85610-TC; 87040-TC; 87081; 88305; 88312; 88313; 93005; 96361; 96374; 99285; C9113; G0482; J1200; J2175; J2250; J2270; J3480; J7030

== ENCOUNTER 2019-01-27 21:11 | Emergency (ER) | payer MEDICARE, MEDICAID ==
[~2019-01-27] VITALS: Ht 162.6 cm; Wt 102.1 kg
[~2019-01-27 21:11] MED LIST changes: -HYDR-3698 PO; +HYDR50TA61 PO
[2019-01-27 21:14] VITALS: BP_SYST 153
--- NOTE | 2019-01-27 21:31 | NUR ---
Patient to ER bed 01 to gown for evaluation. Side rails up.
--- NOTE | 2019-01-27 21:39 | NUR ---
Pt C/O of RT foot pain/swelling and itchiness since Sunday. Pt states her symptoms started as ankle pain and started to progress. Reports increased pain while ambulating. Denies any other symptoms at this time. Vitals are stable, will continue to monitor.
--- NOTE | 2019-01-27 22:00 | NUR ---
ER Dr. Lovelace at bedside examining patient.
[2019-01-27] MEDS ORDERED: AMPICILLIN SODIUM/SULBACTAM NA 3 GM in NS 100 ML IV ONE (22:15)
[2019-01-27] MEDS ORDERED: MORPHINE 4 MG/ML INJ. SYRINGE IVP ONE (22:15)
--- NOTE | 2019-01-27 23:24 | NUR ---
# 20 gauge angiocath placed to LEFT AC. Use of asceptic technique. Opsite placed over site. Blood return noted. Blood for lab drawn from site. Flushed with 10 cc of normal saline. No evidence of infiltration noted. Patient tolerated well.
[2019-01-27] MEDS ORDERED: AMPICILLIN SODIUM/SULBACTAM NA 3 GM VIAL ONE (23:37)
[2019-01-27 23:45] LABS: BASOPHILS # (AUTO) 0.1 K/uL (0.0-0.2); BASOPHILS % (AUTO) 0.6 % (0.0-2.0); EOSINOPHILS % (AUTO) 0.4 % (0.0-4.0); HEMATOCRIT 38.7 % (36-48); HEMOGLOBIN 13.2 g/dL (12.0-16.0); MEAN CORPUSCULAR HEMOGLOBIN 37 pg (27-31); MEAN CORPUSCULAR HGB CONC 34 % (32-36); MEAN CORPUSCULAR VOLUME 108 fL (79.0-98.0); MONOCYTES # (AUTO) 0.5 K/uL (0.0-1.0); MONOCYTES % (AUTO) 5.4 % (1.7-9.3); NEUTROPHILS # (AUTO) 6.9 K/uL (1.8-7.7); NEUTROPHILS % (AUTO) 72.6 % (40.0-70.0); PLATELET COUNT (AUTO) 207 K/uL (130-430); RED BLOOD CELL COUNT(AUTO) 3.57 MIL/uL (4.2-6.2); RED CELL DISTRIBUTION WIDTH 16.3 % (9.0-15.0); WHITE BLOOD COUNT (AUTO) 9.6 K/uL (4.8-10.8)
[2019-01-27 23:51] LABS: CALCIUM 8.8 mg/dL (8.4-11.0); CREATININE 0.75 mg/dL (0.55-1.30); POTASSIUM 3.6 mmol/L (3.5-5.1)
[2019-01-27 23:55] LABS: ALBUMIN 3.1 g/dL (3.4-4.8); TOTAL BILIRUBIN 0.5 mg/dL (0.0-1.0)
--- NOTE | 2019-01-28 00:32 | NUR ---
Pt is resting quietly in bed, no acute distress at this time. States no pain after Morphine administration.
--- NOTE | 2019-01-28 01:06 | NUR ---
Patient to be transferred to [facility] ER. Is being transferred due to insurance reasons. Receiving facility has accepting physician and available space. ER physician has signed transfer form. Patient or responsible green party has agreed to transfer and signed form. Patient belongings inventoried and will be sent with patient. Copy of nursing notes, lab reports, EKG, Physicians Orders and X-rays to be sent with patient. Report called to Merline GARCIA at receiving facility. Receiving physician is Dr. Dunham. [facility] has been called for transfer. ETA is 25mins
[2019-01-28 01:07] VITALS: BP_SYST 140
== END 2019-01-28 01:07 | disposition short-term general hospital (02) ==
LOC: SED 21:11
DX: L03.115 Cellulitis of right lower limb (principal); I10 Essential (primary) hypertension; F41.9 Anxiety disorder, unspecified; M19.90 Unspecified osteoarthritis, unspecified site; F17.210 Nicotine dependence, cigarettes, uncomplicated; Z71.6 Tobacco abuse counseling; Z79.899 Other long term (current) drug therapy
CPT/HCPCS: 36415; 80053; 83605; 85025; 87040; 96365; 96375; 99285; J0295; J2270

== ENCOUNTER 2019-02-16 19:42 | Emergency (ER) | payer MEDICARE, MEDICAID ==
[~2019-02-16] VITALS: Ht 162.6 cm; Wt 101.6 kg
[2019-02-16 19:48] VITALS: BP_SYST 129
[2019-02-16] MEDS ORDERED: HYDROcodone/ACETAMIN 7.5-325 MG TAB PO ONE (20:15)
[2019-02-16 20:55] VITALS: BP_SYST 129
[2019-02-16 20:56] LABS: BILIRUBIN,URINE NEGATIVE (NEGATIVE); BLOOD, URINE 1+ (NEGATIVE); CLARITY/URINE SL HAZY (CLEAR); COLOR,URINE YELLOW (YELLOW); GLUCOSE,URINE 3+ (NEGATIVE); KETONES,URINE NEGATIVE (NEGATIVE); LEUKOCYTE ESTERASE ,URINE NEGATIVE (NEGATIVE); NITRITE, URINE NEGATIVE (NEGATIVE); PROTEIN URINE NEGATIVE (NEGATIVE); UROBILINOGEN,URINE 0.2 (0.2-1.0)
[2019-02-16 21:30] LABS: BACTERIA,URINE FEW /HPF (None Seen); MUCUS,URINE None Seen /LPF (None Seen); WBC,URINE 0-3 /HPF (0-3)
== END 2019-02-16 20:55 | disposition home or self-care (01) ==
LOC: SED 19:42
DX: L03.115 Cellulitis of right lower limb (principal); I10 Essential (primary) hypertension; F41.9 Anxiety disorder, unspecified; M19.90 Unspecified osteoarthritis, unspecified site; Z88.1 Allergy status to other antibiotic agents; Z79.899 Other long term (current) drug therapy; Z86.19 Personal history of other infectious and parasitic diseases
CPT/HCPCS: 81000-TC; 99284

== ENCOUNTER 2019-08-10 10:48 | Emergency (ER) | payer MEDICARE, MEDICAID ==
[~2019-08-10] VITALS: Ht 162.6 cm; Wt 122.5 kg
[2019-08-10 10:48] VITALS: BP_SYST 137
[2019-08-10 10:50] VITALS: BP_SYST 152
--- NOTE | 2019-08-10 12:01 | NUR ---
Patient to ER bed 4 to gown for evaluation. Side rails up.
--- NOTE | 2019-08-10 12:02 | NUR ---
Patient is awake, alert, and oriented x4. Patient is complaining of abdominal pain radiating to her back, states her pancreas is inflamed. Patient is complaining of sharp abdominal for months.
--- NOTE | 2019-08-10 12:10 | NUR ---
ER Dr. Colvin at bedside examining patient.
--- NOTE | 2019-08-10 12:26 | NUR ---
Lab at bedside for blood draw
[2019-08-10 12:42] LABS: BILIRUBIN,URINE NEGATIVE (NEGATIVE); BLOOD, URINE NEGATIVE (NEGATIVE); CLARITY/URINE CLEAR (CLEAR); COLOR,URINE YELLOW (YELLOW); GLUCOSE,URINE NEGATIVE (NEGATIVE); KETONES,URINE NEGATIVE (NEGATIVE); LEUKOCYTE ESTERASE ,URINE NEGATIVE (NEGATIVE); NITRITE, URINE NEGATIVE (NEGATIVE); PROTEIN URINE NEGATIVE (NEGATIVE); UROBILINOGEN,URINE 0.2 (0.2-1.0)
[2019-08-10 12:44] LABS: BASOPHILS # (AUTO) 0.1 K/uL (0.0-0.2); BASOPHILS % (AUTO) 0.7 % (0.0-2.0); EOSINOPHILS # (AUTO) 0.1 K/uL (0.0-0.4); EOSINOPHILS % (AUTO) 1.6 % (0.0-4.0); HEMATOCRIT 40.2 % (36-48); HEMOGLOBIN 13.6 g/dL (12.0-16.0); LYMPHOCYTES # (AUTO) 1.8 K/uL (1.0-5.5); LYMPHOCYTES % (AUTO) 22.6 % (20.5-51.5); MEAN CORPUSCULAR HEMOGLOBIN 35 pg (27-31); MEAN CORPUSCULAR HGB CONC 34 % (32-36); MEAN CORPUSCULAR VOLUME 104 fL (79.0-98.0); MONOCYTES # (AUTO) 0.4 K/uL (0.0-1.0); MONOCYTES % (AUTO) 5.1 % (1.7-9.3); NEUTROPHILS # (AUTO) 5.6 K/uL (1.8-7.7); PLATELET COUNT (AUTO) 247 K/uL (130-430); RED BLOOD CELL COUNT(AUTO) 3.87 MIL/uL (4.2-6.2); RED CELL DISTRIBUTION WIDTH 14.7 % (9.0-15.0)
[2019-08-10 12:57] LABS: ANION GAP 8 (5-15); CALCIUM 8.9 mg/dL (8.4-11.0); CHLORIDE 102 mmol/L (98-107); GLUCOSE 172 mg/dL (70-99); POTASSIUM 3.5 mmol/L (3.5-5.1); SODIUM SERUM 136 mmol/L (136-145); UREA NITROGEN, BLOOD 13 mg/dL (8-21)
[2019-08-10 13:00] LABS: GFR AFRICAN AMERICAN 111 mL/min (>90)
[2019-08-10] MEDS: ONDANSETRON HCL 4 MG/2 ML VIAL IVP ONE (13:00)
--- NOTE | 2019-08-10 13:00 | NUR ---
Patient disconnected cables from monitor and wrapped them around her neck. Instructed her not to do this, she verbalized understanding.
[2019-08-10] MEDS: MORPHINE 4 MG/ML INJ. SYRINGE IVP ONE ×2 (13:01→14:25)
[2019-08-10 13:10] LABS: ALANINE AMINOTRANSFERASE 140 U/L (12-78); ALBUMIN 3.5 g/dL (3.4-4.8); ASPARTATE AMINOTRANSFERASE 102 U/L (10-37); LIPASE 669 U/L (73-393); TOTAL BILIRUBIN 0.4 mg/dL (0.0-1.0)
[2019-08-10 13:17] VITALS: BP_SYST 164
--- NOTE | 2019-08-10 14:09 | NUR ---
Patient found to have disconnected cables from the monitor again, wrapped the cables around her neck again. Patient disconnected from monitor, cable secured to monitor and put away.
--- NOTE | 2019-08-10 14:18 | NUR ---
Dr. Colvin in to talk to patient.
--- NOTE | 2019-08-10 14:20 | NUR ---
GIVEN DASHAWN REQUESTED.
[2019-08-10] MEDS: KETOROLAC TROMETHAMINE 15 MG VIAL IVP ONE (14:24)
--- NOTE | 2019-08-10 14:40 | NUR ---
Patient transported to radiology via wheelchair, accompanied by quality assurance/r&d lab technician.
--- NOTE | 2019-08-10 15:30 | NUR ---
Patient walked out of the ER to leave, called her back in to remove IV and ID bracelet.
--- NOTE | 2019-08-10 15:35 | NUR ---
Patient is yelling and cursing. States she wants to leave at this time. Dr. Colvin came and talked to patient.
--- NOTE | 2019-08-10 15:40 | NUR ---
Patient wishes to leave. She refused to sign AMA paperwork.
== END 2019-08-10 15:40 | disposition home or self-care (01) ==
LOC: SED 10:48
DX: R10.9 Unspecified abdominal pain (principal); I10 Essential (primary) hypertension; F41.9 Anxiety disorder, unspecified; Z88.1 Allergy status to other antibiotic agents
CPT/HCPCS: 36415; 76700; 80053; 81003; 83690; 84484; 85025; 93005; 96374; 96375; 96376; 99284; J1885; J2270; J2405

== ENCOUNTER 2019-10-13 21:33 | Emergency (ER) | payer MEDICARE, MEDICAID ==
[~2019-10-13] VITALS: Ht 162.6 cm; Wt 93.9 kg
[2019-10-13 21:33] VITALS: BP_SYST 136
[2019-10-13 22:14] LABS: BASOPHILS # (AUTO) 0.1 K/uL (0.0-0.2); BASOPHILS % (AUTO) 0.6 % (0.0-2.0); EOSINOPHILS # (AUTO) 0.1 K/uL (0.0-0.4); EOSINOPHILS % (AUTO) 1.3 % (0.0-4.0); HEMATOCRIT 40.8 % (36-48); HEMOGLOBIN 13.6 g/dL (12.0-16.0); LYMPHOCYTES # (AUTO) 2.7 K/uL (1.0-5.5); LYMPHOCYTES % (AUTO) 30.2 % (20.5-51.5); MEAN CORPUSCULAR HEMOGLOBIN 35 pg (27-31); MEAN CORPUSCULAR HGB CONC 33 % (32-36); MEAN CORPUSCULAR VOLUME 106 fL (79.0-98.0); MONOCYTES # (AUTO) 0.5 K/uL (0.0-1.0); MONOCYTES % (AUTO) 5.9 % (1.7-9.3); NEUTROPHILS # (AUTO) 5.4 K/uL (1.8-7.7); PLATELET COUNT (AUTO) 208 K/uL (130-430); RED BLOOD CELL COUNT(AUTO) 3.86 MIL/uL (4.2-6.2); RED CELL DISTRIBUTION WIDTH 16.2 % (9.0-15.0); WHITE BLOOD COUNT (AUTO) 8.8 K/uL (4.8-10.8)
[2019-10-13 22:27] LABS: POTASSIUM 3.8 mmol/L (3.5-5.1)
[2019-10-13 22:28] LABS: CALCIUM 8.6 mg/dL (8.4-11.0); CREATININE 1.04 mg/dL (0.55-1.30)
[2019-10-13 22:29] LABS: INR 1.1 (0.8-1.2); PROTHROMBIN TIME 11.4 SECS (9.5-12.5)
[2019-10-13 22:33] LABS: ALBUMIN 3.2 g/dL (3.4-4.8); TOTAL BILIRUBIN 0.4 mg/dL (0.0-1.0)
[2019-10-13 22:48] LABS: BILIRUBIN,URINE NEGATIVE (NEGATIVE); BLOOD, URINE NEGATIVE (NEGATIVE); CLARITY/URINE CLEAR (CLEAR); COLOR,URINE YELLOW (YELLOW); GLUCOSE,URINE NEGATIVE (NEGATIVE); KETONES,URINE NEGATIVE (NEGATIVE); LEUKOCYTE ESTERASE ,URINE TRACE (NEGATIVE); NITRITE, URINE NEGATIVE (NEGATIVE); PH,URINE 5.5 (5.0-8.0); PROTEIN URINE NEGATIVE (NEGATIVE); UROBILINOGEN,URINE 0.2 (0.2-1.0)
[2019-10-13] MEDS ORDERED: KETOROLAC TROMETHAMINE 30 MG VIAL IVP ONE (23:00)
[2019-10-13 23:30] VITALS: BP_SYST 136
[2019-10-13 23:35] LABS: BACTERIA,URINE FEW /HPF (None Seen); RBC,URINE 0-3 /HPF (0-3)
[2019-10-14] MEDS ORDERED: CIPROFLOXACIN LACT 400 MG/D5W 200 ML IV ONE
== END 2019-10-14 00:43 | disposition left against medical advice (07) ==
LOC: SED 21:33
DX: K85.90 Acute pancreatitis without necrosis or infection, unspecified (principal); R10.84 Generalized abdominal pain; I10 Essential (primary) hypertension; F41.9 Anxiety disorder, unspecified; Z79.899 Other long term (current) drug therapy; Z88.1 Allergy status to other antibiotic agents
CPT/HCPCS: 36415; 80053; 81000; 82150; 83690; 84484; 85025; 85610; 87086; 93005; 96374; 99284; J1885

== ENCOUNTER 2020-05-03 00:19 | Emergency (ER) | payer MEDICARE, MEDICAID ==
[~2020-05-03] VITALS: Ht 162.6 cm; Wt 99.8 kg
[2020-05-03 00:35] VITALS: BP_SYST 165
[2020-05-03] MEDS ORDERED: KETOROLAC TROMETHAMINE 60 MG/2 ML VIAL IM ONE (00:45)
[2020-05-03 01:01] LABS: BILIRUBIN,URINE NEGATIVE (NEGATIVE); CLARITY/URINE CLEAR (CLEAR); COLOR,URINE YELLOW (YELLOW); GLUCOSE,URINE NEGATIVE (NEGATIVE); KETONES,URINE NEGATIVE (NEGATIVE); LEUKOCYTE ESTERASE ,URINE NEGATIVE (NEGATIVE); NITRITE, URINE NEGATIVE (NEGATIVE); PH,URINE 6.5 (5.0-8.0); PROTEIN URINE NEGATIVE (NEGATIVE); UROBILINOGEN,URINE 0.2 (0.2-1.0)
[2020-05-03 01:04] LABS: BLOOD, URINE TRACE (NEGATIVE)
[2020-05-03 01:27] LABS: BACTERIA,URINE MODERATE /HPF (None Seen); WBC,URINE 0-3 /HPF (0-3)
[2020-05-03 01:43] LABS: BASOPHILS % (AUTO) 0.4 % (0.0-2.0); EOSINOPHILS # (AUTO) 0.1 K/uL (0.0-0.4); EOSINOPHILS % (AUTO) 1.3 % (0.0-4.0); HEMATOCRIT 41.6 % (36-48); LYMPHOCYTES # (AUTO) 2.4 K/uL (1.0-5.5); LYMPHOCYTES % (AUTO) 30.9 % (20.5-51.5); MEAN CORPUSCULAR HEMOGLOBIN 34 pg (27-31); MEAN CORPUSCULAR HGB CONC 34 % (32-36); MEAN CORPUSCULAR VOLUME 101 fL (79.0-98.0); MONOCYTES # (AUTO) 0.4 K/uL (0.0-1.0); MONOCYTES % (AUTO) 5.7 % (1.7-9.3); NEUTROPHILS # (AUTO) 4.8 K/uL (1.8-7.7); NEUTROPHILS % (AUTO) 61.7 % (40.0-70.0); PLATELET COUNT (AUTO) 189 K/uL (130-430); RED BLOOD CELL COUNT(AUTO) 4.11 MIL/uL (4.2-6.2); RED CELL DISTRIBUTION WIDTH 13.5 % (9.0-15.0); WHITE BLOOD COUNT (AUTO) 7.8 K/uL (4.8-10.8)
[2020-05-03 01:49] LABS: CREATININE 0.83 mg/dL (0.55-1.30); POTASSIUM 3.3 mmol/L (3.5-5.1)
[2020-05-03 01:54] LABS: ALBUMIN 3.6 g/dL (3.4-4.8); TOTAL BILIRUBIN 0.3 mg/dL (0.0-1.0)
[2020-05-03 01:55] LABS: INR 1.1 (0.8-1.2); PROTHROMBIN TIME 11.4 SECS (9.5-12.5)
[2020-05-03] MEDS ORDERED: MORPHINE 2 MG/ML INJ. SYRINGE IVP ONE (03:15)
== END 2020-05-03 04:28 | disposition left against medical advice (07) ==
LOC: SED 00:19
DX: R10.13 Epigastric pain (principal); I10 Essential (primary) hypertension; F41.9 Anxiety disorder, unspecified; Z79.899 Other long term (current) drug therapy; Z88.1 Allergy status to other antibiotic agents
CPT/HCPCS: 36415; 74176; 80053; 81000; 82150; 83690; 85025; 85610; 87086; 96374; 96375; 99284; J1885; J2270

== ENCOUNTER 2020-06-11 01:35 | Emergency (ER) | payer MEDICARE, MEDICAID, SELFPAY ==
[~2020-06-11] VITALS: Ht 162.6 cm; Wt 90.7 kg
[2020-06-11 01:42] VITALS: BP_SYST 74
[2020-06-11] MEDS ORDERED: NACL 0.9% 1,000 ML IV ONE ×2 (02:00→03:00)
[2020-06-11 02:25] LABS: BASOPHILS # (AUTO) 0.1 K/uL (0.0-0.2); BASOPHILS % (AUTO) 0.3 % (0.0-2.0); HEMATOCRIT 38.4 % (36-48); HEMOGLOBIN 12.2 g/dL (12.0-16.0); LYMPHOCYTES # (AUTO) 1.2 K/uL (1.0-5.5); LYMPHOCYTES % (AUTO) 8.1 % (20.5-51.5); MEAN CORPUSCULAR HEMOGLOBIN 34 pg (27-31); MEAN CORPUSCULAR HGB CONC 32 % (32-36); MEAN CORPUSCULAR VOLUME 105 fL (79.0-98.0); MONOCYTES # (AUTO) 0.7 K/uL (0.0-1.0); MONOCYTES % (AUTO) 4.9 % (1.7-9.3); NEUTROPHILS # (AUTO) 13.1 K/uL (1.8-7.7); NEUTROPHILS % (AUTO) 86.7 % (40.0-70.0); RED BLOOD CELL COUNT(AUTO) 3.65 MIL/uL (4.2-6.2); RED CELL DISTRIBUTION WIDTH 14.5 % (9.0-15.0); WHITE BLOOD COUNT (AUTO) 15.2 K/uL (4.8-10.8)
[2020-06-11 02:43] LABS: ANION GAP 22 (5-15); CALCIUM 9.2 mg/dL (8.4-11.0); CHLORIDE 91 mmol/L (98-107); CREATININE 5.32 mg/dL (0.55-1.30); GLUCOSE 301 mg/dL (70-99); SODIUM SERUM 123 mmol/L (136-145); UREA NITROGEN, BLOOD 93 mg/dL (8-21)
[2020-06-11 02:50] LABS: ALANINE AMINOTRANSFERASE 28 U/L (12-78); ALBUMIN 3.7 g/dL (3.4-4.8); ASPARTATE AMINOTRANSFERASE 17 U/L (10-37); TOTAL BILIRUBIN 0.3 mg/dL (0.0-1.0)
[2020-06-11 02:52] LABS: POTASSIUM 6.4 mmol/L (3.5-5.1)
[2020-06-11 02:53] LABS: GFR AFRICAN AMERICAN 11 mL/min (>90)
[2020-06-11 02:54] LABS: ALCOHOL, BLOOD < 3 mg/dL (<10)
[2020-06-11] MEDS ORDERED: LEVOFLOXACIN 500 MG/D5W 100 ML IV ONE (03:00)
[2020-06-11] MEDS ORDERED: SODIUM POLYSTYRENE SULFONATE 15 GM/60 ML UDBTL RC ONE (03:00)
[2020-06-11] MEDS ORDERED: INSULIN REGULAR, HUMAN 10 UNITS/0.1 ML INJ IVP ONE (03:00)
[2020-06-11 03:12] LABS: BARBITURATE, URINE NEGATIVE (NEG <=200); BENZODIAZEPINE, URINE NEGATIVE (NEG <=150); BILIRUBIN,URINE 2+ (NEGATIVE); CANNABINOID, URINE NEGATIVE (NEG <=50); CLARITY/URINE TURBID (CLEAR); COCAINE, URINE NEGATIVE (NEG <=150); COLOR,URINE YELLOW (YELLOW); GLUCOSE,URINE NEGATIVE (NEGATIVE); KETONES,URINE 1+ (NEGATIVE); LEUKOCYTE ESTERASE ,URINE 2+ (NEGATIVE); METHAMPHETAMINES SCREEN,URINE NEGATIVE (NEG <=500); NITRITE, URINE NEGATIVE (NEGATIVE); OPIATE, URINE POSITIVE (NEG <=100); PHENCYCLIDINE SCREEN,URINE NEGATIVE (NEG <=25); PROTEIN URINE 1+ (NEGATIVE); UR TRICYCLIC ANTIDEPRESSANTS POSITIVE (NEG <=300); URINE AMPHETAMINE NEGATIVE (NEG <=500); URINE METHADONE NEGATIVE (NEG <=200); URINE OXYCODONE SCREEN NEGATIVE (NEG <=100); URINE PROPOXYPHENE SCREEN NEGATIVE (NEG <=300); UROBILINOGEN,URINE 0.2 (0.2-1.0)
[2020-06-11 03:17] LABS: BLOOD, URINE TRACE (NEGATIVE)
[2020-06-11 03:20] LABS: BACTERIA,URINE MANY /HPF (None Seen); WBC,URINE 20-50 /HPF (0-3); YEAST,URINE Many /HPF (None Seen)
[2020-06-11 03:28] LABS: PLATELET COUNT (AUTO) 506 K/uL (130-430)
[2020-06-11] MEDS ORDERED: VANCOMYCIN HCL 1,000 MG in NS 250 ML IV ONE (03:45)
[2020-06-11] MEDS ORDERED: VANCOMYCIN HCL 1000 MG/VIAL IV ONE (04:29)
[2020-06-11 04:58] LABS: INR 1.1 (0.8-1.2); PROTHROMBIN TIME 11.6 SECS (9.5-12.5)
[2020-06-11] MEDS ORDERED: LIDOCAINE 1%, 20 ML MDV 20 ML ONE (07:13)
[2020-06-11 09:25] VITALS: BP_SYST 99
== END 2020-06-11 09:15 | disposition short-term general hospital (02) ==
LOC: SED 01:35
DX: S06.5X0A Traumatic subdural hemorrhage without loss of consciousness, initial encounter (principal); E87.1 Hypo-osmolality and hyponatremia; I10 Essential (primary) hypertension; E87.5 Hyperkalemia; A41.9 Sepsis, unspecified organism; R65.20 Severe sepsis without septic shock; N17.9 Acute kidney failure, unspecified; F41.9 Anxiety disorder, unspecified; Z20.828 Contact with and (suspected) exposure to other viral communicable diseases; Z79.899 Other long term (current) drug therapy; Z88.1 Allergy status to other antibiotic agents; W18.39XA Other fall on same level, initial encounter; Y93.89 Activity, other specified; Y92.89 Other specified places as the place of occurrence of the external cause; Y99.8 Other external cause status
CPT/HCPCS: 36415; 36600; 70450; 71045; 72131; 72170; 76376; 80053; 80307; 81000; 82009; 82140; 82550; 82803; 82962; 83605; 84484; 85025; 85610; 87040; 87086; 87426; 93005; 96361; 96365; 96367; 96375; 99285; C9803; G0481; G0482; J1815; J1956; J2001; J3370; J7030; U0003